=== PATIENT | male | born 1995 | race African-American/Black ===

== ENCOUNTER → 2021-03-21 | Outpatient (REF) | LOC: M LAB REF 16:10 | PROVIDERS: ATTEND Physician Assistant | DX: Z00.00 Encounter for general adult medical examination without abnormal findings (principal) ==

== ENCOUNTER 2021-12-12 11:01 | Day surgery (SDC) | payer OTHER ==
[~2021-12-12] VITALS: Ht 180.3 cm; Wt 91.2 kg
[~2021-12-12 11:01] MED LIST: FERR325T3 PO; NS 1,000 ML IV ONE
[2021-12-12] MEDS ORDERED: fentaNYL 100 MCG/2 ML INJECTION As Ordered ONE (13:07)
[2021-12-12] MEDS ORDERED: LIDOCAINE 2% 100MG/5ML SDV (FOR ANES.) As Ordered ONE (13:37)
[2021-12-12] MEDS ORDERED: propofoL 200 MG/20 ML VIAL As Ordered ONE (13:37)
[2021-12-12 14:02] VITALS: BP 136/73
== END 2021-12-12 14:05 | disposition home or self-care (01) ==
LOC: M OPP 11:01
PROVIDERS: ATTEND Internal Medicine Gastroenterology
DX: D50.9 Iron deficiency anemia, unspecified (principal); R10.13 Epigastric pain; F17.290 Nicotine dependence, other tobacco product, uncomplicated; G47.30 Sleep apnea, unspecified
CPT/HCPCS: 43239; 45378; 88305; J3010